=== PATIENT | male | born 1985 | race African-American/Black ===

== ENCOUNTER 2024-08-10 20:46 | Emergency (ER) | payer SELFPAY ==
[~2024-08-10] VITALS: Ht 177.8 cm; Wt 82.0 kg
[2024-08-10 20:53] VITALS: O2SAT 99
[2024-08-10 20:57] VITALS: BP 118/63; PULSE 76; RESP 18; TEMP 98.4; O2SAT 98
== END 2024-08-10 21:17 | disposition left against medical advice (07) ==
LOC: ER 20:46
DX: M25.512 Pain in left shoulder (principal); Z53.21 Procedure and treatment not carried out due to patient leaving prior to being seen by health care provider
CPT/HCPCS: 93005

== ENCOUNTER 2024-08-11 02:28 | Emergency (ER) | payer SELFPAY ==
[~2024-08-11] VITALS: Ht 177.8 cm; Wt 82.0 kg
[2024-08-11 02:42] VITALS: O2SAT 99
[2024-08-11 02:52] VITALS: BP 127/59; PULSE 89; RESP 18; TEMP 98.2; O2SAT 98
[2024-08-11] MEDS: KETOROLAC 30MG/ML VIAL IM ONE (03:00)
[2024-08-11] MEDS ORDERED: DIPHENHYDRAMINE 50MG CAPSULE PO ONE (04:30)
[2024-08-11] MEDS ORDERED: DIPHENHYDRAMINE 25MG CAPSULE PO NR (04:45)
== END 2024-08-11 04:00 | disposition home or self-care (01) ==
LOC: ER 02:28
DX: M25.512 Pain in left shoulder (principal)
CPT/HCPCS: 99281; J1885; Q0163